=== PATIENT | female | born 1985 | race Caucasian/White ===

== ENCOUNTER → 2016-10-31 | Outpatient (CLI) | payer BC ==
--- NOTE | 2016-10-31 11:30 | US ---
EXAMINATION TYPE: US gallbladder DATE OF EXAM: 10/31/2016 11:15 AM COMPARISON: NONE CLINICAL HISTORY: R10.11 ABD PAIN RUQ. Epigastric pain, nausea EXAM MEASUREMENTS: Liver Length: 14.4 cm Gallbladder Wall: 0.4 cm CBD: 0.2 cm Right Kidney: 10.5 x 4.7 x 4.0 cm Findings: Pancreas: obscured by overlying bowel content Liver: hyperechoic area = 2.0 x 1.8 x 1.9cm, possible hemangioma Gallbladder: at least 2 stones noted, measuring 1.5cm, thickened GB wall Evidence for sonographic Ramirez's sign: Yes CBD: appears wnl Right Kidney: no evidence of hydronephrosis or mass IMPRESSION: 1. Cholelithiasis with gallbladder wall thickening. No evidence of pericholecystic fluid or CBD dilat ation. 2. Probable hemangioma
== END | disposition home or self-care (01) ==
LOC: RADUSWWP 10:56
PROVIDERS: ATTEND Family Medicine
DX: K80.20 Calculus of gallbladder without cholecystitis without obstruction (principal)
CPT/HCPCS: 76705

== ENCOUNTER → 2016-11-01 | Outpatient (CLI) | payer BC ==
[2016-11-01 13:06] LABS: ALT 24 U/L (9-52); AST 22 U/L (14-36); Alkaline Phosphatase 61 U/L (38-126); Amylase <30 U/L (30-110); Bilirubin, Delta 0.3 mg/dL (0.0-0.2); Total Bilirubin 0.4 mg/dL (0.2-1.3); Total Protein 7.3 g/dL (6.3-8.2)
== END | disposition home or self-care (01) ==
LOC: LABWHC1 11:36
PROVIDERS: ATTEND Surgery
DX: K80.20 Calculus of gallbladder without cholecystitis without obstruction (principal)
CPT/HCPCS: 36415; 80076; 82150; 83690

== ENCOUNTER 2016-11-06 08:00 | Day surgery (SDC) | payer BC ==
[2016-11-02 10:52] VITALS: BMI 29.6
[~2016-11-06 08:00] MED LIST: DEXAMETHASONE SOD PHOSPHATE 10 MG/ML 1 ML VIAL IV ONE; HEPARIN SODIUM,PORCINE 5,000 UNIT/ML 1 ML VIAL SQ ONE; HYDROmorphone 1 MG/ML 1 ML SYRINGE IVP PRN; LACTATED RINGERS 1,000 ML IV SCH; MIDAZOLAM 2 MG/2 ML VIAL IV PRN; ONDANSETRON 4 MG/2 ML VIAL IVP ONE; ceFAZolin 2 GM in SODIUM CHLORIDE 0.9% 100 ML IVPB ONE
[2016-11-06] MEDS ORDERED: HEPARIN SODIUM,PORCINE 5,000 UNIT/ML 1 ML VIAL SQ ONE (08:11)
[2016-11-06] MEDS ORDERED: LIDOCAINE 1% 20 ML VIAL (10MG/ML) FOR IV START INTRADERMA ONE (08:45)
[2016-11-06] MEDS ORDERED: LIDOCAINE 1% INJ 10MG/ML (20 ML MDV) SQ ONE ×2 (08:47→10:07)
[2016-11-06] MEDS ORDERED: SUCCINYLCHOLINE CHLORIDE 100 MG/5 ML SYR IV ONE (08:55)
[2016-11-06] MEDS ORDERED: ROCURONIUM BROMIDE 10 MG/ML 10 ML VIAL IV ONE (08:55)
[2016-11-06] MEDS ORDERED: GLYCOPYRROLATE 0.2 MG/ML 2 ML VIAL ONE (08:55)
[2016-11-06] MEDS ORDERED: LIDOCAINE 1% INJ 10MG/ML (20 ML MDV) ONE (08:55)
[2016-11-06] MEDS ORDERED: HYDROmorphone (PF) 1 MG/ML ONE (08:55)
[2016-11-06] MEDS ORDERED: LACTATED RINGERS 900 ML IV ONE (08:55)
[2016-11-06] MEDS ORDERED: fentaNYL (PF) 50 MCG/ML 2 ML AMP ONE (08:55)
[2016-11-06] MEDS ORDERED: PROPOFOL 10 MG/ML 20 ML VIAL IV ONE (08:55)
[2016-11-06] MEDS ORDERED: NEOSTIGMINE 1 MG/ML 10 ML VIAL ONE (08:55)
[2016-11-06] MEDS ORDERED: MIDAZOLAM 2 MG/2 ML VIAL ONE (08:55)
--- NOTE | 2016-11-06 10:30 | P.OP ---
Date of Procedure: 11/06/16 Preoperative Diagnosis: Symptomatic cholelithiasis Postoperative Diagnosis: Same Procedure(s) Performed: Laparoscopic cholecystectomy Anesthesia: IGNACIO Surgeon: Edna Thomas Chemical Production Machine Operator #1: Miranda Upton Estimated Blood Loss (ml): 10 IV fluids (ml): 700 Pathology: other (Gallbladder) Condition: stable Disposition: PACU Indications for Procedure: Symptomatic cholelithiasis Operative Findings: Distended gallbladder with stones Description of Procedure: Patient was taken to the operating room and following induction of general anesthesia the abdomen was prepped and draped in a sterile fashion. An infraumbilical incision was made and carried down to the fascia the intra- abdominal wall. This was elevated and peritoneal cavity was entered under direct visualization. A balloon trocar was placed. The abdomen was insufflated to 15 mmHg pressure. The patient was then positioned. There was noted to be adhesions of of omentum up to the area of the gallbladder. A #5 port was placed in the right upper quadrant and the adhesions were carefully bluntly taken down such that the portion of the gallbladder could be visualized. This was grasped using a toothed grasper. This was elevated cephalad. A second #5 port was placed in the right upper quadrant and blunt dissection was utilized to take down the omental adhesions to the gallbladder. #10 port was just of the left of the midline in the upper abdomen. Through this dissection was performed. The gallbladder was retracted and the cystic duct and multiple believed to be the cystic artery were identified. These were stapled and divided. The gallbladder was then taken down from its peritoneal attachments to the liver bed using the electrocautery device. It should be noted that upon initial evaluation for the cystic duct there was adhesions causing kinking of the gallbladder. These were carefully taken down. After the cystic duct and cystic artery had been divided the gallbladder was carefully removed from its peritoneal attachments to the liver bed using the electrocautery device. It was distended but was able to be placed in a Pleatman sac and brought up through the #10 port site. The fossa was carefully irrigated and there was no evidence of any bleeding in the area of the fossa The area of the cystic duct or cystic artery. The #10 port site was closed using a Vick Mosqueda device. Following this instruments after the abdomen had been well irrigated instruments were removed under direct visualization. The infraumbilical site was closed using 0 Vicryl suture. Skin incisions were closed using 4-0 Monocryl. Patient tolerated procedure in stable condition all instrument and sponge counts were correct at the end of the case.
--- NOTE | 2016-11-06 10:31 | P.DS ---
Providers Attending physician: Edna Thomas Primary care physician: Stated None Plan - Discharge Summary New Discharge Prescriptions: HYDROcodone/APAP 5-325MG [[place] 5] 1 - 2 each PO Q4H PRN #20 tab PRN Reason: Pain Discharge Medication List HYDROcodone/APAP 5-325MG [[place] 5] 1 - 2 each PO Q4H PRN #20 tab 11/06/16 [Rx] Follow up Appointment(s)/Referral(s): Edna Thomas MD [STAFF PHYSICIAN] - 1 Week Activity/Diet/Wound Care/Special Instructions: No heavy lifting nothing over [address] until seen by Dr. Foster Discharge Disposition: HOME SELF-CARE
[2016-11-06 10:36] VITALS: TEMP 96.7
[2016-11-06 10:56] VITALS: RESP 18
[2016-11-06] MEDS ORDERED: HYDROcodone/APAP 5-325MG 1 EACH TAB PO ONE (11:20)
[2016-11-06 11:42] VITALS: BP 105/74; PULSE 70
== END 2016-11-06 12:18 | disposition home or self-care (01) ==
LOC: OR 08:00
PROVIDERS: ATTEND Surgery
DX: K80.10 Calculus of gallbladder with chronic cholecystitis without obstruction (principal)
CPT/HCPCS: 47562; 81025; 88304; J2250; J1644; J1100; J2710; J0690; J2405; J2001; J3010; J1170; J0330; J2704

== ENCOUNTER 2019-07-31 11:07 | Emergency (ER) | payer BC ==
[2019-07-31 11:14] VITALS: RESP 18
[2019-07-31] MEDS ORDERED: LIDOCAINE 5% PATCH TOPICAL STA (12:05)
[2019-07-31] MEDS ORDERED: CYCLOBENZAPRINE 10 MG TAB PO STA (12:05)
[2019-07-31] MEDS ORDERED: KETOROLAC 30 MG/ML 1 ML VIAL IM STA (12:05)
--- NOTE | 2019-07-31 12:35 | ED ---
Back Pain HPI - General Chief Complaint: Back Pain/Injury Stated Complaint: lt sided back pain Time Seen by Provider: 07/31/19 12:05 Source: patient Limitations: no limitations - History of Present Illness Initial Comments: Patient is a 33-year-old female with history of back pain is presenting to the emergency department with a chief complaint of back pain. Patient reports this issue began about one year ago but has significantly increased in severity over the last day. Patient reports the pain was about an 8 prior to coming to the ED and it was sharp in nature. The patient currently reports the pain is about a 6. Patient reports most of her pain is located in the left lumbar region. Patient reports the pain is exacerbated a little bit with flexion but mostly with extension of the back. Patient reports sometimes the pain is shooting along the posterior aspect of the left thigh to the popliteal region. Patient denies any trauma to the region. Patient reports she went to her primary care but they have not done anything for it. Patient denies saddle anesthesia, urinary or bowel incontinence. Patient reports the pain was so severe today caused her to have a vomiting episode. Patient denies abdominal pain chest pain or shortness of breath - Related Data Previous Rx's Medication Instructions Recorded HYDROcodone/APAP 5-325MG [[place] 5] 1 - 2 each PO Q4H PRN #20 tab 11/06/16 Allergies Allergy/AdvReac Type Severity Reaction Status Date / Time No Known Allergies Allergy Verified 07/31/19 11:13 Review of Systems ROS Statement: Those systems with pertinent positive or pertinent negative responses have been documented in the HPI. ROS Other: All systems not noted in ROS Statement are negative. Past Medical History Past Medical History: GERD/Reflux Additional Past Medical History / Comment(s): migraines, gallstones, History of Any Multi-Drug Resistant Organisms: None Reported Past Surgical History: Section, Cholecystectomy Additional Past Surgical History / Comment(s): urethral diverticulum Past Anesthesia/Blood Transfusion Reactions: Motion Sickness Additional Past Anesthesia/Blood Transfusion Reaction / Comment(s): spinal for two C/S "did not work" wore off too quick Past Psychological History: No Psychological Hx Reported Smoking Status: Never smoker Past Alcohol Use History: Rare Past Drug Use History: None Reported - Past Family History Mother Family Medical History: No Reported History General Exam Limitations: no limitations General appearance: alert, in no apparent distress Head exam: Present: atraumatic, normocephalic, normal inspection Eye exam: Present: normal appearance Pupils: Present: normal accommodation ENT exam: Present: normal exam, mucous membranes moist, normal external ear exam Neck exam: Present: normal inspection, full ROM. Absent: tenderness Respiratory exam: Present: normal lung sounds bilaterally Cardiovascular Exam: Present: regular rate, normal rhythm, normal heart sounds Extremities exam: Present: normal inspection, full ROM, normal capillary refill Back exam: Present: normal inspection, tenderness, paraspinal tenderness (Left paraspinal tenderness in the lumbosacral region). Absent: full ROM (Limited range of motion with flexion and extension due to pain), CVA tenderness (R), CVA tenderness (L), muscle spasm, vertebral tenderness, other (Negative leg raise test.) Neurological exam: Present: alert, oriented X3 Psychiatric exam: Present: normal affect, normal mood Skin exam: Present: warm, intact Course Vital Signs 07/31/19 11:11 Temperature 97.4 F L Pulse Rate 91 Respiratory 18 Rate Blood Pressure 128/73 O2 Sat by Pulse 98 Oximetry Medical Decision Making - Medical Decision Making Patient is a 33-year-old female presenting to the emergency room with a chief complaint of back pain. This is benign when issue for about a year with no trauma to the region. A physical examination that only appears to be left paraspinal tenderness in the lumbosacral region with a negative leg raise test. However, patient does report occasional sciatica type symptoms with pain radiating along the posterior aspect of the left upper leg to the popliteal region. Patient was given Toradol, Flexeril and a Lidoderm patch. On reevaluation patient reports improvement in her symptoms. Patient will be discharged with Flexeril. She was advised not to drive or operate heavy machinery when taking the medication. No cauda equina signs. I suspect the patient has a lumbar radiculopathy. I advised the patient to follow-up with orthopedics and possibly physical therapy. Strict return parameters were thoroughly discussed with patient was understanding and agreeable. Case discussed physician. Disposition Clinical Impression: Mechanical back pain, Lumbar radiculopathy, chronic Disposition: HOME SELF-CARE Condition: Stable Instructions (If sedation given, give patient instructions): Lumbar Radiculopathy (ED), Lower Back Exercises (ED) Additional Instructions: Please take prescribed medication as directed. Please follow-up with multimedia specialist to return to emergency department if symptoms worsen. Is patient prescribed a controlled substance at d/c from ED?: No Referrals: Kaz Foster MD [Primary Care Provider] - 1-2 days Geoff Head MD [Medical Doctor] - 1-2 days Time of Disposition: 12:34
[2019-07-31 13:05] VITALS: BP 120/87; PULSE 84; TEMP 98.4
== END 2019-07-31 13:15 | disposition home or self-care (01) ==
LOC: EC 11:07
DX: M54.16 Radiculopathy, lumbar region (principal)
CPT/HCPCS: 99283; 96372; J1885

== ENCOUNTER 2020-02-25 16:58 | Inpatient (IN) | payer BC ==
--- NOTE | 2020-02-25 19:14 | P.HPOB ---
History of Present Illness H&P Date: 02/25/20 Chief Complaint: Large probable hemorrhagic left ovarian cyst, acute pain The patient is a 34-year-old 3 para 3003 who presented to the office late this afternoon for reestablishing with the office at which time she revealed an episode of acute pelvic pain, primarily left lower quadrant, for which she had been seen 2 days ago through [facility]'s emergency Department. She was seen and evaluated and underwent both CAT scan and pelvic ultrasound both showing a large complex left ovarian or adnexal mass with probable hemorrhage in the range of approximately 10 x 7 x 6 cm. The pain had come on acutely and was directly midcycle with her last menstrual period at the beginning of the month. Cycles were otherwise previously normal and not particularly problematic. She has undergone a tubal ligation in the past. Evaluation in the office demonstrated moderate abdominal tenderness most acute in the left lower quadrant where she did have mild guarding but no apparent rebound. Pelvic examination was somewhat limited secondary to the patient's discomfort though no mass was immediately palpable. There is apparently no evidence of possible torsion on her imaging studies. The pain has continued to be persistent over the last 2 days and does respond to nonsteroidals though not enough to make the patient mobile. Obstetrical history: 3 para 3003 with 3 term sections, the last of which included tubal ligation. Gynecologic history: Unremarkable with no history of any infections to include STDs. Review of Systems Review of systems is confined to history of present illness. Past Medical History Past Medical History: GERD/Reflux Additional Past Medical History / Comment(s): migraines, gallstones, History of Any Multi-Drug Resistant Organisms: None Reported Past Surgical History: Section, Cholecystectomy Additional Past Surgical History / Comment(s): urethral diverticulum Past Anesthesia/Blood Transfusion Reactions: Motion Sickness Additional Past Anesthesia/Blood Transfusion Reaction / Comment(s): spinal for two C/S "did not work" wore off too quick Past Psychological History: No Psychological Hx Reported Smoking Status: Never smoker Past Alcohol Use History: Rare Past Drug Use History: None Reported - Past Family History Mother Family Medical History: No Reported History Medications and Allergies Home Medications Medication Instructions Recorded Confirmed Type Acetaminophen Tab [Tylenol Tab] 500 mg PO DIRECTED PRN 02/25/20 02/25/20 History Cetirizine HCl [Zyrtec] 5 mg PO DAILY 02/25/20 02/25/20 History Naproxen Sodium [Aleve] 220 mg PO DIRECTED PRN 02/25/20 02/25/20 History Omeprazole [PriLOSEC] 40 mg PO DAILY 02/25/20 02/25/20 History Allergies Allergy/AdvReac Type Severity Reaction Status Date / Time No Known Allergies Allergy Verified 07/31/19 11:13 Exam Vital Signs Temp Pulse Resp BP 02/25/20 18:00 98.4 F 100 16 125/81 Intake and Output 02/25/20 02/25/20 02/25/20 06:59 14:59 22:59 Other: Weight 92.533 kg In general, this is a moderately obese white female in some discomfort. Her heart has a regular rhythm and rate without murmur. Her lungs are clear to auscultation bilaterally in all chaves. Her abdomen is nondistended, soft, with mild to moderate tenderness primarily in the left lower quadrant. There are no palpable masses. There is mild guarding with no rebound. Her extremities are without any cyanosis, clubbing, or edema and are nontender to palpation bilaterally. Pelvic examination demonstrates normal external genitalia and BUS with normal vaginal mucosa and cervix to palpation. There is minimal cervical motion tenderness. Uterus is approximately 4-5 weeks in size, midplane to sl ightly anteverted, mobile, and slightly tender. The adnexa are nonpalpable with bilateral tenderness more significant on the left side. Assessment and Plan (1) Complex cyst of left ovary Current Visit: Yes Status: Acute Code(s): N83.292 - OTHER OVARIAN CYST, LEFT SIDE SNOMED Code(s): 96020287705650195 (2) Acute pain Current Visit: Yes Status: Acute Code(s): R52 - PAIN, UNSPECIFIED SNOMED Code(s): 851278834 Plan: The patient has been admitted directly with a plan for surgical intervention in the morning. She has eaten this evening and does tolerate a regular diet without nausea or vomiting but continues to have significant pain. We will provide her with pain relief with Dilaudid through the IV. I plan to proceed with exploratory laparotomy, possible left salpingo-oophorectomy, and indicated surgery. The risks and complications of the procedure have been thoroughly discussed with the patient and her . The specifically include the risk for bleeding, bleeding requiring transfusion, infection, and injury to local structures to include the bowel, bladder, and possibly ureters. She has u nderstood all of these concerns and has agreed to proceed. We are now awaiting time from the operating room to proceed tomorrow morning.
[2020-02-25] MEDS: HYDROmorphone 0.5 MG/0.5 ML SYRINGE IVP PRN ×2 (20:05→23:50)
[2020-02-25] MEDS: LACTATED RINGERS 1,000 ML IV SCH (20:17)
[2020-02-25 20:37] LABS: HCT 36.5 % (34.0-46.0); HGB 11.7 gm/dL (11.4-16.0); MCH 26.8 pg (25.0-35.0); MCHC 32.2 g/dL (31.0-37.0); MCV 83.3 fL (80.0-100.0); Mean Platelet Volume 8.2; Platelet Count 267 k/uL (150-450); RBC 4.38 m/uL (3.80-5.40); RDW 13.8 % (11.5-15.5); WBC 10.6 k/uL (3.8-10.6)
[2020-02-26] MEDS: HYDROmorphone 0.5 MG/0.5 ML SYRINGE IVP PRN ×3 (03:45→11:52)
[2020-02-26] MEDS: LACTATED RINGERS 1,000 ML IV SCH ×2 (03:46→17:23)
[2020-02-26] MEDS ORDERED: ONDANSETRON 4 MG/2 ML VIAL IVP STA (11:37)
[2020-02-26] MEDS ORDERED: IV FLUID CONTINUATION 900 ML IV ONE (13:59)
[2020-02-26] MEDS ORDERED: DEXAMETHASONE SOD PHOSPHATE 10 MG/ML 1 ML VIAL IV ONE (14:15)
[2020-02-26] MEDS ORDERED: FAMOTIDINE 20 MG/2 ML VIAL IV ONE (14:16)
[2020-02-26] MEDS ORDERED: LIDOCAINE 1% INJ 10MG/ML (20 ML MDV) ONE (14:32)
[2020-02-26] MEDS ORDERED: PROPOFOL 10 MG/ML 20 ML VIAL IV ONE (14:32)
[2020-02-26] MEDS ORDERED: fentaNYL (PF) 50 MCG/ML 2 ML AMP ONE (14:32)
[2020-02-26] MEDS ORDERED: SUCCINYLCHOLINE CHLORIDE VIAL 200 MG/10 ML VIAL IV ONE (14:32)
[2020-02-26] MEDS ORDERED: MIDAZOLAM 2 MG/2 ML VIAL ONE (14:32)
[2020-02-26] MEDS ORDERED: ROCURONIUM BROMIDE 10 MG/ML 5 ML VIAL IV ONE (14:32)
[2020-02-26] MEDS ORDERED: DEXAMETHASONE SOD PHOS (MDV) 100 MG/10 ML VIAL ONE (14:32)
[2020-02-26] MEDS ORDERED: ceFAZolin 1,000 MG VIAL IVPB ONE (15:10)
[2020-02-26] MEDS ORDERED: LACTATED RINGERS 1,000 ML IV ONE (15:38)
[2020-02-26] MEDS ORDERED: IBUPROFEN 600 MG TAB PO PRN (15:51)
[2020-02-26] MEDS ORDERED: KETOROLAC 30 MG/ML 1 ML VIAL IVP PRN (15:51)
[2020-02-26] MEDS ORDERED: ONDANSETRON 4 MG/2 ML VIAL IVP PRN (15:51)
[2020-02-26] MEDS ORDERED: SIMETHICONE 80 MG CHEWABLE PO PRN (15:51)
[2020-02-26] MEDS ORDERED: diphenhydrAMINE 50 MG/ML 1 ML VIAL IVP PRN (15:51)
[2020-02-26] MEDS ORDERED: Acetaminophen-Codeine 300-30mg TAB PO PRN ×2 (15:51)
[2020-02-26] MEDS ORDERED: METOCLOPRAMIDE 5 MG/ML 2 ML VIAL IVP PRN (15:51)
[2020-02-26] MEDS ORDERED: NALOXONE 0.4 MG/ML 1 ML VIAL IV PRN (15:53)
[2020-02-26] MEDS ORDERED: HYDROmorphone PCA 10 MG/50 ML BAG IV PRN (15:53)
--- NOTE | 2020-02-26 16:00 | P.OP ---
Date of Procedure: 02/26/20 Preoperative Diagnosis: #1. Acute left lower quadrant pain #2. Greater than 10 cm complex left adnexal mass Postoperative Diagnosis: Same plus #3. Left ovarian torsion Procedure(s) Performed: 1. Exploratory laparotomy #2. Left salpingo-oophorectomy Anesthesia: IGNACIO Surgeon: Bradley Maloney Riddler Operator #1: Nova Bruno Estimated Blood Loss (ml): 50 IV fluids (ml): 1,300 Urine output (ml): 60 Pathology: other (Left tubo-ovarian complex) Condition: stable Disposition: PACU Operative Findings: Intraoperatively, the left tube and ovary were noted to be greatly dilated and appeared to be significantly hemorrhagic. Following the ovary to its base and the infundibulopelvic ligament, there was clear and obvious torsion. There was bilateral evidence of tubal ligation. The uterus was otherwise normal to inspection as was the right ovary. Description of Procedure: The patient was prepped and draped in usual fashion after a difficult intubation with general endotracheal anesthesia was carried out. A Pfannenstiel incision was made through pre-existing scar and extended the abdominal cavity with a moderate amount of scarring noted at the fascia and rectus muscles as well as the parietal peritoneum. The pelvis itself demonstrated no significant scarring at all. Expiration of the pelvis demonstrated a significantly enlarged and irregular left tubo-ovarian complex which was elevated through the incision at which time clear and obvious torsion was noted of the infundibulopelvic ligament. A [place] clamp was placed across the pedicle and the specimen divided from the patient and sent for pathological diagnoses. The pedicle was then tied with a transfixion stitch of 0 Vicryl followed by free tie of 0 Vicryl. Exploration of the remainder of the pelvis demonstrated normal findings. Thorough irrigation was carried out and the left infundibulopelvic pedicle was reexamined and noted to have some bleeding from just below the area of the tie. A transfixion stitch of 0 Vicryl was placed just below this level and to include the blunt tip of the remaining tube on the uterine side was firmly tied down which created excellent hemostasis. After ensuring that there was no further issues with bleeding and reexploration of the pelvis with all findings being normal, all instrumentation was removed and the parietal peritoneum was loosely reapproximated. The layer of muscles was examined and made hemostatic with the Bovie. The fascia was closed with 2 running stitches of 0 Vicryl proceeding from the lateral margins to the midpoint. Subcutaneous tissues were irrigated, made hemostatic with the Bovie, and reapproximated with a running stitch of 30 plain catgut. The skin was retracted with a running subcuticular stitch of 4-0 Vicryl followed by half-inch Steri-Strips placed with Mastisol. Estimated blood loss for the case is approximately 50 mL. There were no complications. All sponge, instrument, and needle counts were correct. The patient tolerated the procedure well and proceeded to the recovery room in stable condition.
[2020-02-27] MEDS: LACTATED RINGERS 1,000 ML IV SCH (03:21)
[2020-02-27 05:28] VITALS: RESP 16
[2020-02-27 05:58] LABS: Basophils % (A) 0 %; Eosinophils % (A) 0 %; HCT 33.6 % (34.0-46.0); HGB 10.2 gm/dL (11.4-16.0); Lymphocytes # (A) 0.5 k/uL (1.0-4.8); Lymphocytes % (A) 5 %; MCH 25.5 pg (25.0-35.0); MCHC 30.4 g/dL (31.0-37.0); Mean Platelet Volume 8.7; Monocytes # (A) 0.4 k/uL (0-1.0); Monocytes % (A) 4 %; Neutrophils # (A) 10.3 k/uL (1.3-7.7); Neutrophils % (A) 91 %; Platelet Count 251 k/uL (150-450); RDW 13.8 % (11.5-15.5); WBC 11.3 k/uL (3.8-10.6)
[2020-02-27] MEDS: SENNOSIDES-DOCUSATE SODIUM 1 EACH TAB PO SCH ×2 (06:32→10:01)
--- NOTE | 2020-02-27 09:45 | P.DS ---
Providers Date of admission: 02/25/20 17:33 Expected date of discharge: 02/27/20 Attending physician: Bradley Maloney Primary care physician: Stated None Hospital Course: This is a 34-year-old white female who presented with an enlarged hemorrhagic cyst measuring 10 cm sonographically. After consultation with her attending physician, decision was made to proceed with exploratory laparotomy. Please see dictated history and physical for details. Patient was admitted and underwent a right salpingo-oophorectomy. There was a torsed ovary and tube noted with hemorrhagic changes at least 10 cm in diameter. The opposite ovary appeared normal to inspection and was left in situ. Please see dictated operative note for details. Surgery was remarkable for extremely difficult intubation. Fiberoptic scope was utilized. This morning the patient is feeling well. She is voiding, and ambulating and passing flatus without difficulty. Vital signs are stable and she is afebrile. Incision is clean and dry, intact, Steri-Strips applied. Extremities are negative for edema. Patient does complain of a sore throat but has had no hemoptysis. She is swallowing without difficulty. She will follow-up with Dr. Maloney in the office in 2 weeks. I have reminded her no intercourse, tampons or douching. She will use [id number] Advil or Aleve, or Motrin as needed for pain. She will call with any fevers shakes or chills, foul smelling or bloody incisional drainage, with any pain not alleviated by [id number] products, or indeed with any difficulties or concerns. She is reminded of the difficulties encountered with intubation, and counseled to advise any further practitioners of same. Assessment: Doing well postoperative day #1 Patient Condition at Discharge: Good Plan - Discharge Summary Discharge Rx Participant: No New Discharge Prescriptions: No Action Cetirizine HCl [Zyrtec] 5 mg PO DAILY Acetaminophen Tab [Tylenol Tab] 500 mg PO DIRECTED PRN PRN Reason: Pain Naproxen Sodium [Aleve] 220 mg PO DIRECTED PRN PRN Reason: Pain Omeprazole [PriLOSEC] 40 mg PO DAILY Discharge Medication List Acetaminophen Tab [Tylenol Tab] 500 mg PO DIRECTED PRN 02/25/20 [History] Cetirizine HCl [Zyrtec] 5 mg PO DAILY 02/25/20 [History] Naproxen Sodium [Aleve] 220 mg PO DIRECTED PRN 02/25/20 [History] Omeprazole [PriLOSEC] 40 mg PO DAILY 02/25/20 [History] Follow up Appointment(s)/Referral(s): Bradley Maloney MD [STAFF PHYSICIAN] - 2 Weeks
[2020-02-27 14:53] VITALS: BP 101/62; PULSE 78; TEMP 97.7
== END 2020-02-27 16:15 | disposition home or self-care (01) | DRG 742 ==
LOC: 4FBP 17:33
PROVIDERS: ADMIT Obstetrics & Gynecology; ATTEND Obstetrics & Gynecology
PROC: 0UT60ZZ Resection of Left Fallopian Tube, Open Approach (ICD-10-PCS; principal; 2020-02-26 08:20)
PROC: 0WJG0ZZ Inspection of Peritoneal Cavity, Open Approach (ICD-10-PCS; principal; 2020-02-26 08:20)
PROC: 0UT10ZZ Resection of Left Ovary, Open Approach (ICD-10-PCS; principal; 2020-02-26 08:20)
DX: D27.1 Benign neoplasm of left ovary (principal); N83.512 Torsion of left ovary and ovarian pedicle; K21.9 Gastro-esophageal reflux disease without esophagitis; G43.909 Migraine, unspecified, not intractable, without status migrainosus; E66.9 Obesity, unspecified; Z98.891 History of uterine scar from previous surgery; Z98.51 Tubal ligation status; Z90.49 Acquired absence of other specified parts of digestive tract; Z98.890 Other specified postprocedural states; Z68.33 Body mass index [BMI] 33.0-33.9, adult
CPT/HCPCS: 81025; 85025; 85027; 86850; 86900; 86901; 88307

== ENCOUNTER → 2020-10-14 | Outpatient (CLI) | payer BC | END | disposition home or self-care (01) | LOC: LABWHC1 13:11 | PROVIDERS: ATTEND Nurse Practitioner | DX: Z20.822 Contact with and (suspected) exposure to COVID-19 (principal); J10.1 Influenza due to other identified influenza virus with other respiratory manifestations | CPT/HCPCS: 87502; U0003; C9803; U0005 ==

== ENCOUNTER 2022-07-11 08:02 | Emergency (ER) | payer BC ==
[2022-07-11 08:24] VITALS: RESP 18; TEMP 98.3
[2022-07-11] MEDS ORDERED: IBUPROFEN 600 MG TAB PO STA (08:54)
[2022-07-11] MEDS ORDERED: ONDANSETRON ODT 4 MG TAB PO STA (08:54)
--- NOTE | 2022-07-11 10:07 | ED ---
ENT HPI - General Chief complaint: ENT Stated complaint: sore throat Time Seen by Provider: 07/11/22 08:04 Source: patient, RN notes reviewed Mode of arrival: ambulatory Limitations: no limitations - History of Present Illness Initial comments: 36-year-old female presents emergency Department chief complaint of sore throat. Patient states started yesterday has progressed to nausea vomiting fevers diarrhea. Patient states she feels that she has strep she's had this in the past very similar, tonsils are swollen. Patient states she's nauseated curren tly unable take any Tylenol or Motrin. Patient denies any abdominal pain no sick contacts. No cough - Related Data Home Medications Medication Instructions Recorded Confirmed Acetaminophen Tab [Tylenol Tab] 500 mg PO DIRECTED PRN 02/25/20 02/25/20 Cetirizine HCl [Zyrtec] 5 mg PO DAILY 02/25/20 02/25/20 Naproxen Sodium [Aleve] 220 mg PO DIRECTED PRN 02/25/20 02/25/20 Omeprazole [PriLOSEC] 40 mg PO DAILY 02/25/20 02/25/20 Previous Rx's Medication Instructions Recorded Amoxic-Pot Clav 875-125Mg 1 tab PO Q12HR #20 tab 07/11/22 [Augmentin 875-125] dexAMETHasone [Decadron] 6 mg PO DAILY #5 tab 07/11/22 Allergies Allergy/AdvReac Type Severity Reaction Status Date / Time No Known Allergies Allergy Verified 07/11/22 08:24 Review of Systems ROS Statement: Those systems with pertinent positive or pertinent negative responses have been documented in the HPI. ROS Other: All systems not noted in ROS Statement are negative. Past Medical History Past Medical History: GERD/Reflux Additional Past Medical History / Comment(s): migraines, gallstones, History of Any Multi-Drug Resistant Organisms: None Reported Past Surgical History: Section, Cholecystectomy Additional Past Surgical History / Comment(s): urethral diverticulum Past Anesthesia/Blood Transfusion Reactions: Motion Sickness Additional Past Anesthesia/Blood Transfusion Reaction / Comment(s): spinal for two C/S "did not work" wore off too quick Past Psychological History: No Psychological Hx Reported Smoking Status: Never smoker Past Alcohol Use History: Rare Past Drug Use History: None Reported - Past Family History Mother Family Medical History: No Reported History General Exam Limitations: no limitations General appearance: alert, in no apparent distress Head exam: Present: atraumatic, normocephalic, normal inspection Eye exam: Present: normal appearance, PERRL, EOMI. Absent: scleral icterus, conjunctival injection, periorbital swelling ENT exam: Present: mucous membranes moist, TM's normal bilaterally. Absent: normal exam, normal oropharynx (Enlarged tonsils, exudates noted, erythema) Neck exam: Present: normal inspection, full ROM. Absent: tenderness, meningismus, lymphadenopathy Course Vital Signs 07/11/22 08:22 Temperature 98.3 F Pulse Rate 101 H Respiratory 18 Rate Blood Pressure 109/74 O2 Sat by Pulse 98 Oximetry Medical Decision Making - Medical Decision Making Patient has negative heterophile, negative: Strep is negative though concerning signs and symptoms. Patient was started on amoxicillin and given Decadron 4 enlarged tonsils. Return parameters were discussed. - Lab Data Lab Results 07/11/22 07/11/22 07/11/22 Range/Units 08:30 08:30 09:25 Coronavirus (PCR) Not Detected (Not Detectd) Heterophile Antibody Negative (Negative) Group A Strep Rapid Negative (Negative) Disposition Clinical Impression: Pharyngitis, Tonsillitis Disposition: HOME SELF-CARE Condition: Stable Instructions (If sedation given, give patient instructions): Tonsillitis (ED), Pharyngitis (ED) Additional Instructions: Please return to the Emergency Department if symptoms worsen or any other concerns. Prescriptions: Amoxic-Pot Clav 875-125Mg [Augmentin 875-125] 1 tab PO Q12HR #20 tab dexAMETHasone [Decadron] 6 mg PO DAILY #5 tab Is patient prescribed a controlled substance at d/c from ED?: No Referrals: Kaz Foster MD [Primary Care Provider] - 1-2 days Time of Disposition: 10:07
[2022-07-11 10:45] VITALS: BP 119/76; PULSE 87
== END 2022-07-11 10:45 | disposition home or self-care (01) ==
LOC: EC 08:02
DX: J03.90 Acute tonsillitis, unspecified (principal); K21.9 Gastro-esophageal reflux disease without esophagitis; Z79.899 Other long term (current) drug therapy; Z20.822 Contact with and (suspected) exposure to COVID-19
CPT/HCPCS: 36415; 86308; 87081; 87430; 87635; 99283

== ENCOUNTER 2024-03-23 09:30 | Emergency (ER) | payer BC ==
[2024-03-23 09:40] VITALS: TEMP 98
[2024-03-23 09:47] VITALS: RESP 20
[2024-03-23] MEDS: PANTOPRAZOLE 40 MG/10 ML VIAL IVP STA (10:27)
--- NOTE | 2024-03-23 10:35 | ED ---
URI HPI - General Chief Complaint: Upper Respiratory Infection Stated Complaint: cough,SOB Time Seen by Provider: 03/23/24 09:49 Source: patient, RN notes reviewed Mode of arrival: ambulatory Limitations: no limitations - History of Present Illness Initial Comments: 38-year-old female presents emergency department with chief complaint of cough and shortness of breath weakness. Patient states has not felt well since for the last 6 to 7 days. She has minimal productive cough, shortness of breath she does have a history of asthma. Complains of epigastric discomfort with increasing reflux in which patient states she was on medication but stopped ned ing it. Patient denies any lower abdominal pain denies any back pain. Denies any chest pain no headache or dizziness mild nasal congestion - Related Data Home Medications Medication Instructions Recorded Confirmed Cetirizine HCl [Zyrtec] 5 mg PO DAILY 02/25/20 03/23/24 Albuterol Sulfate [Albuterol 1 - 2 puff PO RT-Q4H PRN 03/23/24 03/23/24 Sulfate Hfa] Diclofenac Sodium [Voltaren] 75 mg PO BID 03/23/24 03/23/24 Fluticasone Nasal Cutler [Flonase 2 spray EA NOSTRIL DAILY 03/23/24 03/23/24 Nasal Cutler] Fluticasone/Umeclidin/Vilanter 1 puff INHALATION RT-DAILY PRN 03/23/24 03/23/24 [Trelegy Ellipta 100-62.5-25] Montelukast [Singulair] 10 mg PO DAILY 03/23/24 03/23/24 predniSONE [Deltasone] 40 mg PO DAILY 03/23/24 03/23/24 Previous Rx's Medication Instructions Recorded Amoxic-Pot Clav 875-125Mg 1 tab PO Q12HR #20 tab 03/23/24 [Augmentin 875-125] Omeprazole [PriLOSEC] 40 mg PO DAILY #14 cap 03/23/24 Allergies Allergy/AdvReac Type Severity Reaction Status Date / Time No Known Allergies Allergy Verified 03/23/24 11:01 Review of Systems ROS Statement: Those systems with pertinent positive or pertinent negative responses have been documented in the HPI. ROS Other: All systems not noted in ROS Statement are negative. Past Medical History Past Medical History: GERD/Reflux Additional Past Medical History / Comment(s): migraines, gallstones, History of Any Multi-Drug Resistant Organisms: None Reported Past Surgical History: Section, Cholecystectomy Additional Past Surgical History / Comment(s): urethral diverticulum Past Anesthesia/Blood Transfusion Reactions: Motion Sickness Additional Past Anesthesia/Blood Transfusion Reaction / Comment(s): spinal for two C/S "did not work" wore off too quick Past Psychological History: No Psychological Hx Reported Smoking Status: Never smoker Past Alcohol Use History: Rare Past Drug Use History: None Reported - Past Family History Mother Family Medical History: No Reported History General Exam Limitations: no limitations General appearance: alert, in no apparent distress Head exam: Present: atraumatic, normocephalic, normal inspection Eye exam: Present: normal appearance, PERRL, EOMI. Absent: scleral icterus, conjunctival injection, periorbital swelling ENT exam: Present: normal exam, normal oropharynx, mucous membranes moist Neck exam: Present: normal inspection, full ROM. Absent: tenderness, meningismus, lymphadenopathy Respiratory exam: Present: wheezes. Absent: respiratory distress, rales, rhonchi, stridor Cardiovascular Exam: Present: regular rate, normal rhythm, normal heart sounds. Absent: systolic murmur, diastolic murmur, rubs, gallop, clicks GI/Abdominal exam: Present: soft, tenderness (Epigastric), normal bowel sounds. Absent: distended, guarding, rebound, rigid Course Vital Signs 03/23/24 03/23/24 03/23/24 09:36 09:43 11:50 Temperature 98 F Pulse Rate 94 92 Respiratory 18 20 Rate Blood Pressure 140/79 O2 Sat by Pulse 98 Oximetry 03/23/24 12:19 Temperature Pulse Rate 109 H Respiratory 20 Rate Blood Pressure 130/72 O2 Sat by Pulse 94 L Oximetry Medical Decision Making - Medical Decision Making Was pt. sent in by a medical professional or institution (, PA, FINANCE LECTURER, urgent care, hospital, or custodial...) When possible be specific @ -No Did you speak to anyone other than the patient for history (EMS, parent, family, police, friend...)? What history was obtained from this source @ -No Did you review nursing and triage notes (agree or disagree)? Why? @ -I reviewed and agree with nursing and triage notes Were old charts reviewed (outside hosp., previous admission, EMS record, old EKG, old radiological studies, urgent care reports/EKG's, custodial records)? Report findings @ -No old charts were reviewed Differential Diagnosis (chest pain, altered mental status, abdominal pain women, abdominal pain men, vaginal bleeding, weakness, fever, dyspnea, syncope, headache, dizziness, GI bleed, back pain, seizure, CVA, palpatations, mental health, musculoskeletal)? @ -COVID 19, RSV, influenza, pneumonia, acute bronchitis, URI, this list is not all inclusive EKG interpreted by me (3pts min.). @ -None X-rays interpreted by me (1pt min.). @ -Chest x-ray shows mild haziness no evidence of pneumonia CT interpreted by me (1pt min.). @ -None done U/S interpreted by me (1pt. min.). @ -None done What testing was considered but not performed or refused? (CT, X-rays, U/S, labs)? Why? @ -None What meds were considered but not given or refused? Why? @ -None Did you discuss the management of the patient with other professionals (professionals i.e. , PA, FINANCE LECTURER, lab, RT, psych nurse, social media job titles, coal handler, teacher, deck officer, outpatient case manager)? Give summary @ -No Was smoking cessation discussed for >3mins.? @ -No Was critical care preformed (if so, how long)? @ -No Were there social determinants of health that impacted care today? How? (Homelessness, low income, unemployed, alcoholism, drug addiction, transportation, low edu. Level, literacy, decrease access to med. care, alf, rehab)? @ -No Was there de-escalation of care discussed even if they declined (Discuss DNR or withdrawal of care, Hospice)? DNR status @ -No What co-morbidities impacted this encounter? (DM, HTN, Smoking, COPD, CAD, Cancer, CVA, ARF, Chemo, Hep., AIDS, mental health diagnosis, sleep apnea, morbid obesity)? @ -None Was patient admitted / discharged? Hospital course, mention meds given and route, prescriptions, significant lab abnormalities, going to OR and other pertinent info. @ -Discharge patient feels greatly improved patient has tracheobronchitis. Patient is discharged on oral antibiotics, antiacids for her ongoing GERD symptoms. Undiagnosed new problem with uncertain prognosis? @ -No Drug Therapy requiring intensive monitoring for toxicity (Heparin, Nitro, Insulin, Cardizem)? @ -No Were any procedures done? @ -No Diagnosis/symptom? @ -GERD, tracheobronchitis Acute, or Chronic, or Acute on Chronic? @ -Acute Uncomplicated (without systemic symptoms) or Complicated (systemic symptoms)? @ -Uncomplicated Side effects of treatment? @ -No Exacerbation, Progression, or Severe Exacerbation? @ -No Poses a threat to life or bodily function? How? (Chest pain, USA, VT, pneumonia, PE, COPD, DKA, ARF, appy, cholecystitis, CVA, Diverticulitis, Homicidal, Suicidal, threat to staff... and all critical care pts) @ -No - Lab Data Result diagrams: 03/23/24 10:35 03/23/24 10:35 Lab Results 03/23/24 03/23/24 03/23/24 Range/Units 10:35 10:35 10:35 WBC 6.2 (3.8-10.6) k/uL RBC 4.38 (3.80-5.40) m/uL Hgb 12.1 (11.4-16.0) gm/dL Hct 36.5 (34.0-46.0) % MCV 83.4 (80.0-100.0) fL MCH 27.5 (25.0-35.0) pg MCHC 33.0 (31.0-37.0) g/dL RDW 12.8 (11.5-15.5) % Plt Count 298 (150-450) k/uL MPV 8.5 Neutrophils % 81 % Lymphocytes % 12 % Monocytes % 5 % Eosinophils % 0 % Basophils % 0 % Neutrophils # 5.0 (1.3-7.7) k/uL Lymphocytes # 0.8 L (1.0-4.8) k/uL Monocytes # 0.3 (0-1.0) k/uL Eosinophils # 0.0 (0-0.7) k/uL Basophils # 0.0 (0-0.2) k/uL PT 10.2 (10.0-12.5) sec INR 0.9 (<1.2) APTT 23.8 (22.0-30.0) sec Sodium 138 (137-145) mmol/L Potassium 4.0 (3.5-5.1) mmol/L Chloride 105 (98-107) mmol/L Carbon Dioxide 28 (22-30) mmol/L Anion Gap 5 mmol/L BUN 7 (7-17) mg/dL Creatinine 0.57 (0.52-1.04) mg/dL Est GFR (CKD-EPI)AfAm >90 (>60 ml/min/1.73 sqM) Est GFR (CKD-EPI)NonAf >90 (>60 ml/min/1.73 sqM) Glucose 139 H (74-99) mg/dL Calcium 9.2 (8.4-10.2) mg/dL Total Bilirubin 0.2 (0.2-1.3) mg/dL AST 20 (14-36) U/L ALT 14 (4-34) U/L Alkaline Phosphatase 75 (38-126) U/L Total Protein 7.2 (6.3-8.2) g/dL Albumin 4.2 (3.5-5.0) g/dL Lipase 55 (23-300) U/L Influenza Type A (PCR) (Not Detectd) Influenza Type B (PCR) (Not Detectd) RSV (PCR) (Not Detectd) SARS-CoV-2 (PCR) (Not Detectd) 03/23/24 Range/Units 10:35 WBC (3.8-10.6) k/uL RBC (3.80-5.40) m/uL Hgb (11.4-16.0) gm/dL Hct (34.0-46.0) % MCV (80.0-100.0) fL MCH (25.0-35.0) pg MCHC (31.0-37.0) g/dL RDW (11.5-15.5) % Plt Count (150-450) k/uL MPV Neutrophils % % Lymphocytes % % Monocytes % % Eosinophils % % Basophils % % Neutrophils # (1.3-7.7) k/uL Lymphocytes # (1.0-4.8) k/uL Monocytes # (0-1.0) k/uL Eosinophils # (0-0.7) k/uL Basophils # (0-0.2) k/uL PT (10.0-12.5) sec INR (<1.2) APTT (22.0-30.0) sec Sodium (137-145) mmol/L Potassium (3.5-5.1) mmol/L Chloride (98-107) mmol/L Carbon Dioxide (22-30) mmol/L Anion Gap mmol/L BUN (7-17) mg/dL Creatinine (0.52-1.04) mg/dL Est GFR (CKD-EPI)AfAm (>60 ml/min/1.73 sqM) Est GFR (CKD-EPI)NonAf (>60 ml/min/1.73 sqM) Glucose (74-99) mg/dL Calcium (8.4-10.2) mg/dL Total Bilirubin (0.2-1.3) mg/dL AST (14-36) U/L ALT (4-34) U/L Alkaline Phosphatase (38-126) U/L Total Protein (6.3-8.2) g/dL Albumin (3.5-5.0) g/dL Lipase (23-300) U/L Influenza Type A (PCR) Not Detected (Not Detectd) Influenza Type B (PCR) Not Detected (Not Detectd) RSV (PCR) Not Detected (Not Detectd) SARS-CoV-2 (PCR) Not Detected (Not Detectd) Disposition Clinical Impression: Tracheobronchitis, Asthma, Gastritis Disposition: HOME SELF-CARE Condition: Stable Instructions (If sedation given, give patient instructions): Upper Respiratory Infection (ED) Additional Instructions: Please return to the Emergency Department if symptoms worsen or any other concerns. Prescriptions: Amoxic-Pot Clav 875-125Mg [Augmentin 875-125] 1 tab PO Q12HR #20 tab Omeprazole [PriLOSEC] 40 mg PO DAILY #14 cap Is patient prescribed a controlled substance at d/c from ED?: No Referrals: Kaz Foster MD [Primary Care Provider] - 1-2 days Time of Disposition: 12:20
[2024-03-23 10:52] LABS: Basophils % (A) 0 %; Eosinophils % (A) 0 %; HCT 36.5 % (34.0-46.0); HGB 12.1 gm/dL (11.4-16.0); Lymphocytes # (A) 0.8 k/uL (1.0-4.8); Lymphocytes % (A) 12 %; MCH 27.5 pg (25.0-35.0); MCV 83.4 fL (80.0-100.0); Mean Platelet Volume 8.5; Monocytes # (A) 0.3 k/uL (0-1.0); Monocytes % (A) 5 %; Neutrophils % (A) 81 %; Platelet Count 298 k/uL (150-450); RBC 4.38 m/uL (3.80-5.40); RDW 12.8 % (11.5-15.5); WBC 6.2 k/uL (3.8-10.6)
[2024-03-23 10:57] LABS: INR 0.9 (<1.2); Partial Thromboplastin Time 23.8 sec (22.0-30.0); Prothrombin Time 10.2 sec (10.0-12.5)
[2024-03-23 11:05] LABS: ALT 14 U/L (4-34); AST 20 U/L (14-36); African American GFR (CKD) >90 (>60 ml/min/1.73 sqM); Albumin 4.2 g/dL (3.5-5.0); Alkaline Phosphatase 75 U/L (38-126); Anion Gap 5 mmol/L; Blood Urea Nitrogen 7 mg/dL (7-17); Calcium 9.2 mg/dL (8.4-10.2); Carbon Dioxide 28 mmol/L (22-30); Chloride 105 mmol/L (98-107); Glucose 139 mg/dL (74-99); Lipase 55 U/L (23-300); Non-African American GFR(CKD) >90 (>60 ml/min/1.73 sqM); Sodium 138 mmol/L (137-145); Total Bilirubin 0.2 mg/dL (0.2-1.3); Total Protein 7.2 g/dL (6.3-8.2)
[2024-03-23] MEDS: IPRATROPIUM-ALBUTEROL 3 ML NEB INHALATION STA (11:48)
--- NOTE | 2024-03-23 11:57 | XR ---
EXAMINATION TYPE: XR chest 2V DATE OF EXAM: 03/23/2024 COMPARISON: 03/07/2010 INDICATION: Short of breath, cough TECHNIQUE: Frontal and lateral views of the chest are obtained. FINDINGS: The heart size is normal. The pulmonary vasculature is normal. The lungs are clear. IMPRESSION: 1. No acute pulmonary process.
[2024-03-23 12:20] VITALS: BP 130/72; PULSE 109
== END 2024-03-23 12:34 | disposition home or self-care (01) ==
LOC: EC 09:30
DX: J40 Bronchitis, not specified as acute or chronic (principal); K29.70 Gastritis, unspecified, without bleeding; Z90.49 Acquired absence of other specified parts of digestive tract
CPT/HCPCS: 36415; 94640; 80053; 83690; 85025; 85610; 85730; 87636; 71046; 99283; 96374; C9113

== ENCOUNTER → 2024-03-27 | Outpatient (CLI) | payer BC ==
--- NOTE | 2024-03-30 13:45 | MM ---
Reason for Exam: Screening (asymptomatic). Patient History: Menarche at age 12. First Full-Term at age 14. Left ovary removed at age 35. Premenopausal. Maternal aunt had breast cancer, age 40. Risk Values: Kathy 5 year model risk: 0.4%. NCI Lifetime model risk: 6.7%. Tissue Density: The breasts are heterogeneously dense, which may obscure small masses. Findings: Analyzed By CAD. Right breast: There is no suspicious group of microcalcifications or new suspicious mass. Left breast: There is no suspicious group of microcalcifications or new suspicious mass. Overall Assessment: Negative, BI-RAD 1 Management: Screening Mammogram of both breasts in [address] [facility] will attempt to contact patient to return for supplemental views and ultrasound if indicated. Patient should continue monthly self-breast exams. A clinical breast exam by your physician is recommended on an annual basis. This exam should not preclude additional follow-up of suspicious palpable abnormalities. Note on Kathy scores and lifetime risk: 1. A Kathy score greater than 3% is considered moderate risk. If this is the case, consider specialist referral to assess eligibility for a risk reducing agent. 2. If overall lifetime risk for the development of breast cancer is 20% or higher, the patient may qualify for future screening with alternating mammogram and breast MRI. Electronically signed and approved by: Jason Gonzalez DO
== END | disposition home or self-care (01) ==
LOC: RADMAMWWP 09:13
PROVIDERS: ATTEND Family Medicine
DX: Z12.31 Encounter for screening mammogram for malignant neoplasm of breast (principal); R92.333 Mammographic heterogeneous density, bilateral breasts; Z80.3 Family history of malignant neoplasm of breast
CPT/HCPCS: 77067

== ENCOUNTER → 2025-04-08 | Outpatient (CLI) | payer BC ==
--- NOTE | 2025-04-08 12:36 | XR ---
EXAMINATION TYPE: XR cervical spine comp DATE OF EXAM: 04/08/2025 12:28 PM COMPARISON: None. CLINICAL INDICATION: Female, 39 years old with history of M54.12 RADICULOPATHY, CERVICAL REGION, TECHNIQUE: Frontal, lateral, oblique, swimmers, and open mouth view of the cervical spine are obtaine d. FINDINGS: The cervical spine is visualized in its entirety from C1 thru the top of T1 level. It is s atisfactory in alignment without evidence of acute fracture or dislocation. The pre-vertebral soft t issue appears within normal limits. Mild degenerative narrowing noted at C5-6 and C6-7. The C1-C2 art iculation is unremarkable on the open mouth view. The oblique images are within normal limits. IMPRESSION: No acute fracture or dislocation is seen in the cervical spine.ICD 10 NO FRACTURE, INITI AL EVALUATION [facility], , 04/08/2025 12:34 PM
== END | disposition home or self-care (01) ==
LOC: RADXRMAIN 12:15
PROVIDERS: ATTEND Family Medicine
DX: M54.12 Radiculopathy, cervical region (principal)
CPT/HCPCS: 72050